=== PATIENT | female | born 1955 | race Caucasian/White ===

== ENCOUNTER → 2021-02-08 | Outpatient (CLI) | payer MEDICARE, OTHER ==
[~2021-02-08] MED LIST: CIPR500T94 PO; METR500T PO; MULT1CAP15 PO
== END ==
LOC: MAMMO 09:18
PROVIDERS: ATTEND Obstetrics & Gynecology
DX: Z12.31 Encounter for screening mammogram for malignant neoplasm of breast (principal)
CPT/HCPCS: 77063; 77067